=== PATIENT | female | born 1940 | race Two or more races ===

== ENCOUNTER 2018-11-08 09:20 | Day surgery (SDC) | payer MEDICARE, OTHER ==
[~2018-11-08] VITALS: Ht 152.4 cm; Wt 52.7 kg
[~2018-11-08 09:20] MED LIST: GLIP10TA14 PO; PIOG30TA19 PO; [UNRECOGNIZED DRUG - OTHER]; metoprolol
[2018-11-08 10:27] VITALS: Ht 152.4 cm; Wt 52.7 kg
[2018-11-08] MEDS ORDERED: ASA 81 (10:31)
[2018-11-08] MEDS ORDERED: ATORVASTATIN (10:31)
[2018-11-08] MEDS ORDERED: INSULIN (10:31)
[2018-11-08] MEDS ORDERED: METFORMIN (10:31)
[2018-11-08] MEDS ORDERED: JANUVIA (10:31)
[2018-11-08] MEDS ORDERED: LEVOTHYROXINE (10:31)
[2018-11-08] MEDS ORDERED: LOSARTAN (10:31)
--- NOTE | 2018-11-08 11:42 | PREAC ---
Date/Time of Note Date/Time of Note DATE: 11/08/18 TIME: 11:40 Anesthesia Eval and Record Evaluation Time Pre-Procedure Interview DATE: 11/08/18 TIME: 11:40 Age 78 Sex female NPO: 8 hrs Preoperative diagnosis change in bowel habit Planned procedure colonoscopy Past Medical History Past Medical History: Includes Cardio: HTN, Dyslipidemia Endo: Diabetes, Hypothyroid Surgery & Anesthesia Issues No known issue Meds Anticoagulation: No Beta Margoth within 24 hr: No Reason Beta Margoth not given: Pt. not on B-Margoth Reported Medications [Levothyroxine] No Conflict Check 11/08/18 [Atorvastatin] No Conflict Check 11/08/18 [Insulin] No Conflict Check 11/08/18 [Metformin] No Conflict Check 11/08/18 [Januvia] No Conflict Check 11/08/18 [Losartan] No Conflict Check 11/08/18 [Asa 81] No Conflict Check 11/08/18 Discontinued Reported Medications [danubia] No Conflict Check, 100 AM 05/21/11 [metoprolol] No Conflict Check, 25 MG BID 05/21/11 Pioglitazone Hcl* (Actos*) 30 Mg Tablet, 30 MG PO AM 05/21/11 Glipizide* (Glipizide*) 10 Mg Tablet, 10 MG PO BID 05/21/11 Meds reviewed: Yes Allergies Coded Allergies: No Known Drug Allergies (Verified Allergy, Unknown, 05/21/11) Uncoded Allergies: PENICILLIN (Allergy, Unknown, 11/08/18) Allergies Reviewed: Yes Labs/Studies Labs Reviewed: Reviewed by anesthesiologist test: N/A Pre-procedure Exam Airway: Adequate mouth opening Mallampati: Mallampati I Teeth: Abnormal (denture) Lung: Normal Heart: Normal ASA Physical Status ASA physical status: 2 Emergency: None Planned Anesthetic General/MAC: MAC Planned Pain Management Parenteral pain med Pre-operative Attestations Prior to commencing anesthesia and surgery, the patient was re-evaluated, there was verification of: *The patient's identity *The results of appropriate recent lab work and preoperative vital signs *The above evaluation not changing prior to induction *Anesthetic plan, risk benefits, alternative and complications discussed with patient/family; questions answered; patient/family understands, accepts and wishes to proceed. MADDY BASSETT MD Nov 08, 2018 11:42
[2018-11-08] MEDS ORDERED: PROPOFOL 20 ML ONE (11:43)
[2018-11-08] MEDS ORDERED: FENTAnyl 50 MCG/ML VIAL ONE (11:43)
[2018-11-08 11:55] VITALS: BP 141/60; PULSE 57; RESP 21
[2018-11-08] MEDS ORDERED: DEXTROSE 50% 50 ML SYRINGE ONE ×2 (11:59→12:00)
[2018-11-08] MEDS ORDERED: ONDANSETRON 4 MG INJ IV PRN (12:00)
[2018-11-08 13:19] VITALS: BP 145/63; PULSE 52; RESP 20
--- NOTE | 2018-11-08 14:36 | PAC ---
Date/Time of Note Date/Time of Note DATE: 11/08/18 TIME: 14:36 Post-Anesthesia Notes Post-Anesthesia Note Last documented vital signs Vital Signs Date Temp Pulse Resp B/P (MAP) Pulse Ox O2 O2 Flow FiO2 Time Delivery Rate 11/08/18 98 52 20 145/63 100 Room Air 13:19 (90) 11/08/18 98.0 11:55 Activity: WNL Respiratory function: WNL Cardiovascular function: WNL Mental status: Baseline Pain reasonably controlled: Yes Hydration appropriate: Yes Nausea/Vomiting absent: No MADDY BASSETT MD Nov 08, 2018 14:36
== END 2018-11-08 16:37 | disposition home or self-care (01) ==
LOC: GIL 09:20
PROVIDERS: ATTEND Internal Medicine Gastroenterology
DX: R19.4 Change in bowel habit (principal); K64.8 Other hemorrhoids; I10 Essential (primary) hypertension; E11.9 Type 2 diabetes mellitus without complications
CPT/HCPCS: 82962; J3010